=== PATIENT | male | born 1980 | race Caucasian/White ===

== ENCOUNTER → 2020-05-24 15:10 | Outpatient (CLI) | payer OTHER, SELFPAY ==
[2020-05-25 22:51] LABS: COVID19 Sendout Not Detected (Not Detect)
== END ==
PROVIDERS: Visit Provider Physician Assistant
DX: Z01.812 Encounter for preprocedural laboratory examination (principal)
CPT/HCPCS: 87635

== ENCOUNTER → 2021-02-08 08:01 | Outpatient (CLI) | payer OTHER, SELFPAY ==
[2021-02-08] MEDS: COVID-19 VACC, Ad26(JANSSEN)/PF 0.5 ML IM (08:09)
== END ==
PROVIDERS: Visit Provider Internal Medicine
DX: Z23 Encounter for immunization (principal)
CPT/HCPCS: 0031A; 91303